=== PATIENT | male | born 2000 | race Caucasian/White ===

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

== ENCOUNTER 2018-02-24 16:55 | Emergency (ER) | payer OTHER ==
[~2018-02-24] VITALS: Ht 180.3 cm; Wt 90.7 kg
[2018-02-24 17:01] VITALS: Ht 180.3 cm; Wt 90.7 kg
[2018-02-24 19:05] VITALS: BP 155/79
== END 2018-02-24 19:05 | disposition home or self-care (01) ==
LOC: ED 16:55
DX: R07.89 Other chest pain (principal)
CPT/HCPCS: J1885; Q0092

== ENCOUNTER 2018-08-29 08:48 | Emergency (ER) | payer OTHER ==
[~2018-08-29] VITALS: Ht 180.3 cm; Wt 100.7 kg
[2018-08-29 08:50] VITALS: Ht 180.3 cm; Wt 100.7 kg
[2018-08-29 10:46] VITALS: BP 130/72
== END 2018-08-29 10:46 | disposition home or self-care (01) ==
LOC: ED 08:48
DX: J02.9 Acute pharyngitis, unspecified (principal)
CPT/HCPCS: J1100; J1885; Q0162

== ENCOUNTER 2019-04-22 15:43 | Emergency (ER) | payer OTHER ==
[~2019-04-22] VITALS: Ht 177.8 cm; Wt 95.3 kg
[2019-04-22 15:48] VITALS: Ht 177.8 cm; Wt 95.3 kg
[2019-04-22 16:35] VITALS: BP 139/88
== END 2019-04-22 16:35 | disposition home or self-care (01) ==
LOC: ED 15:43
DX: S63.602A Unspecified sprain of left thumb, initial encounter (principal); X58.XXXA Exposure to other specified factors, initial encounter; Y93.89 Activity, other specified; Y92.89 Other specified places as the place of occurrence of the external cause; Y99.8 Other external cause status
CPT/HCPCS: A4570